=== PATIENT | female | born 1985 | race Hispanic/Latino ===

== ENCOUNTER 2024-04-27 16:56 | Emergency (ER) | payer SELFPAY ==
[~2024-04-27] VITALS: Ht 154.9 cm; Wt 86.3 kg
[~2024-04-27 16:56] MED LIST: SERT20OR PO; [UNRECOGNIZED DRUG - CODE] MC
[2024-04-27 17:29] VITALS: TEMP 99
--- NOTE | 2024-04-27 17:31 | ERN ---
ED Note History of Present Illness Stated Complaint: SOB,NUMBNESS ON BODY, SWOLLEN LEGS AND FEET, Time Seen by MD: 17:04 Time Seen by Midlevel: 17:04 Dictation: The patient is a 38-year-old female with surgical history of breast augmentation, carlos goss who presents to the emergency department with complaints of bilateral lower leg swelling onset yesterday. Patient reports also shortness of breath on and off and with going off for two months. Denies any cough, fevers, nausea vomiting or diarrhea, lower leg trauma, pain. Denies any recent travels. Denies taking any medications at home. Allergies: Coded Allergies: No Known Allergies (Unverified Allergy, Unknown, 02/28/14) Home Meds Reported Medications Hydrazine Sulfate (Hydrazine Sulfate) 1 Gm Crystals, 1 GM MC AM for ANXIETY, PKT 02/28/14 Sertraline HCl (Zoloft) 20 Mg/1 Ml Oral.conc, 20 MG PO AM for ANXIETY, ML 02/28/14 Past Medical History RN Note Reviewed/Agreed w/PFSH: Yes Review of System Dictation Constitutional: Negative for fever,chills, and weight loss Eyes: Negative for injury, pain,redness, and discharge ENT: Negative for injury,pain or swelling Cardiovascular: Negative for chest pain, palpitations positive for lower extremity edema Respiratory: Negative for cough, and wheezing, positive for shortness of breath Abdomen/GI: Negative for abdominal pain, nausea, vomiting, diarrhea, and constipation Back: Negative for injury and pain : Negative for injury, bleeding and discharge MS/Extremity: Negative for injury and deformity Skin: Negative for rash, and discoloration Neuro: Negative for headache, weakness, numbness, tingling, and seizure Psych: Negative for suicide ideation, homicidal ideation, and hallucinations Initial Vital Sign VS Vital Signs Date Time Temp Pulse Resp B/P (MAP) Pulse Ox O2 Delivery O2 Flow Rate FiO2 04/27/24 17:29 99.0 81 20 118/85 99 Room Air 0 04/27/24 18:24 21 Physical Exam Dictation Vital Signs reviewed General Appearance: Alert, oriented x 3, no acute distress, well developed, nourished. Head and Face: non-traumatic. Eyes: PERRL, pink conjunctivas, eyelid no trauma, anterior chamber with arcus senilis. Ears: Pinnas intact and no signs of trauma or erythema ear canals clear and no discharge TM no erythema Nose: No discharge, no bleeding. Oropharynx: Mouth normal, tongue pink. pharynx clear,no erythema, tonsils no exudates, no abscesses noted, mucous membrane moist Neck: Supple, non-tender, no thyromegaly, no masses, no JVD, no bruits Breast:Deferred Chest:No tenderness, no crepitus, no paradoxical movement, no retractions Lungs:Clear, well-ventilated, symmetric, no rales, no wheezing, no rhonchi, no stridor, good breath sounds bilaterally Heart: Regular rate, regular rhythm, no murmur, no gallops Vascular: Nonpitting edema to bilateral lower extremities, dorsalis pedis 3+ Abdomen: Soft, positive bowel sounds, nondistended, no guarding, nontender, no rebound, no masses no hepatomegaly, no splenomegaly, no Deng's sign, no hernias. Rectal: Deferred Genital: Deferred Neurological: Normal speech, motor function intact, sensory function intact Musculoskeletal: Neck nontender, full range of motion, back nontender, full range of motion, Extremities: nontender, full range of motion Skin: Color pink, dry, no turgor, no rash, no lacerations, no abrasions, no contusions. Lymphatic: Deferred Results (Laboratory/Radiology) Laboratory/Radiology Laboratory Tests Test 04/27/24 17:46 White Blood Count 11.5 K/uL (4.8-10.8) H Red Blood Count 4.25 MIL/uL (4.00-5.50) Hemoglobin 12.7 g/dL (12.0-16.0) Hematocrit 39.5 % (36-48) Mean Corpuscular Volume 92.9 fL (79-99) Mean Corpuscular Hemoglobin 29.9 pg (27.0-33.0) Mean Corpuscular Hemoglobin Concent 32.2 g/dL (32.0-36.0) Red Cell Distribution Width 13.0 % (11.0-15.5) Platelet Count 342 K/uL (130-400) Mean Platelet Volume 9.6 fL (7.5-10.5) Immature Granulocyte % (Auto) 0.5 % (0-1) Neutrophils (%) (Auto) 61.8 % (40.0-77.0) Lymphocytes (%) (Auto) 29.7 % (21.0-51.0) Monocytes (%) (Auto) 5.7 % (3.0-13.0) Eosinophils (%) (Auto) 2.0 % (0.0-8.0) Basophils (%) (Auto) 0.3 % (0.0-5.0) Neutrophils # (Auto) 7.1 K/uL (1.8-7.7) Lymphocytes # (Auto) 3.4 K/uL (1.0-4.8) Monocytes # (Auto) 0.7 K/uL (0.1-1.0) Eosinophils # (Auto) 0.23 K/uL (0.00-0.70) Basophils # (Auto) 0.04 K/uL (0.00-0.20) Absolute Immature Granulocyte (auto 0.06 K/uL (0-1) Nucleated Red Blood Cells 0.0 % (0.0-0.19) Sodium Level 134 mmol/L (136-145) L Potassium Level 3.8 mmol/L (3.5-5.1) Chloride Level 95 mmol/L (101-111) L Carbon Dioxide Level 31 mmol/L (21-32) Blood Urea Nitrogen 12 mg/dL (7-18) Creatinine 0.9 mg/dL (0.5-1.0) Glomerular Filtration Rate Calc 85 mL/min (>90) Random Glucose 90 mg/dL (70-105) Total Calcium 9.6 mg/dL (8.5-10.1) Total Creatine Kinase 502 U/L (21-232) *H Troponin I High Sensitivity < 4 ng/L (4-50) L B-Type Natriuretic Peptide 11 pg/mL (0-100) Serum Test, Qualitative NEGATIVE (NEGATIVE) AMRIK: sob ORDERING PHYSICIAN: FARHAD PULLIAM [employer]ONE SUPERVISOR [employer] PROCEDURE: CXR1VW - CHEST 1VW PORTABLE CHEST RADIOGRAPH INDICATION: sob COMPARISON: None FINDINGS: Heart size is normal. The pulmonary vascularity and maeve appear normal. No abnormal pulmonary parenchymal opacity or consolidation identified. No significant pleural effusion noted. No pneumothorax detected. IMPRESSION: No radiographic evidence for any acute cardiopulmonary process. REASON: swelling ORDERING PHYSICIAN: FARHAD PULLIAM [employer]ONE SUPERVISOR [employer] PROCEDURE: VENOUS HOA - US VENOUS DOPPLER BILATERAL US VENOUS DOPPLER BILATERAL CLINICAL HISTORY: swelling COMPARISON: None FINDINGS: Bilateral lower extremity venous Doppler ultrasound was performed. The greater saphenous, common femoral, deep femoral, femoral , popliteal veins are widely patent and easily compressible with the ultrasound probe. Calf veins appear normal as well. There is normal response to compression and augmentation. IMPRESSION: Normal bilateral lower extremity venous Doppler ultrasound. Labs Reviewed?: Yes EKG: (+) rhythm (Sinus rhythm), (+) [place] (120), (+) QRS (83) EKG Comment: EKG 04/27/2024 1744 ventricular rate 81, regular rate and rhythm, normal sinus rhythm, no STEMI. ED Course ED Course Orders Procedure Category Date Status Time Cbc With Differential LAB 04/27/24 Complete 17:26 Troponin I High LAB 04/27/24 Complete Sensitivity 17:26 12 Lead Ekg Tracing- EKG 04/27/24 Resulted Technical 17:26 Chest 1vw RAD 04/27/24 Resulted 17:26 Basic Metabolic Panel LAB 04/27/24 Complete 17:26 Us Venous Doppler US 04/27/24 Resulted Bilateral 17:26 Testing, LAB 04/27/24 Complete Serum Hcg 17:26 B-Type Natriuretic LAB 04/27/24 Complete Peptide 17:30 Creatine Kinase, Total LAB 04/27/24 Complete 17:30 0.9%Nacl 1000ml (Ns PHA 04/27/24 Complete 1000ml) 19:00 Current Medications Medications (Trade) Dose Ordered Sig/Anastasia Route PRN Reason Start Time Stop Time Status Last Admin Dose Admin Sodium Chloride 1,000 ml @ 0 mls/hr ONCE ONCE IV 04/27/24 19:00 04/27/24 19:01 DC 04/27/24 18:43 Vital Signs Date Time Temp Pulse Resp B/P (MAP) Pulse Ox O2 Delivery O2 Flow Rate FiO2 04/27/24 20:00 88 18 124/68 99 Room Air* 0 21 04/27/24 19:10 91 18 135/90 100 Room Air* 0 21 04/27/24 18:24 90 14 135/90 100 Room Air* 0 21 04/27/24 17:29 99.0 81 20 118/85 99 Room Air 0 Medical Decision Making MDM The patient is a 38-year-old female with surgical history of breast augmentation, carlos goss who presents to the emergency department with complaints of bilateral lower leg swelling onset yesterday. Patient reports also shortness of breath on and off and with going off for two months. Denies any cough, fevers, nausea vomiting or diarrhea, lower leg trauma, pain. Denies any recent travels. Denies taking any medications at home. CBC showed mild leukocytosis, no anemia, chemistry showed mild hyponatremia, hypochloremia, slightly elevated CK level. Patient was giving a little oral fluids. Bilateral lower extremity ultrasound negative for DVT, chest x-ray clear. Patient reports that she isn't incontinence constantly sitting down. That might be causing the lower extremity edema. Patient instructed to elevate legs to decrease swelling. Patient continues in no distress. Will be discharged to follow up with primary doctor. Patient agrees with discharge planning. Differential diagnosis: Pneumonia, pneumothorax, electrolyte imbalance, DVT, CHF Need for hospitalization: Patient does not meet criteria for hospitalization. There are no social concerns with this patient. DX & DISP Disposition: Discharge Departure Impression: Primary Impression: Lower leg edema Additional Impressions: Dyspnea, Hyponatremia, Elevated creatine kinase Condition: Stable Additional Instructions: Please elevate your legs as needed to decrease edema. Your ultrasound showed no blood clots. Please follow up with primary doctor. FOLLOW-UP WITH PRIMARY CARE PROVIDER IN 1 TO 2 DAYS. TAKE MEDICATIONS DIRECTED HERE IN THE EMERGENCY ROOM. OKAY TO CONTINUE HOME MEDICATIONS UNLESS OTHERWISE DISCUSSED DURING YOUR VISIT IN THE EMERGENCY ROOM TODAY. RETURN TO YOUR NEAREST EMERGENCY ROOM IF SYMPTOMS WORSEN OR IF THERE IS NO IMPROVEMENT. CALL 911 IF YOU NEED IMMEDIATE ASSISTANCE. TAKE TYLENOL OR MOTRIN [id number] NEEDED AND IF NO CONTRAINDICATIONS ARE PRESENT. INCREASE ORAL HYDRATION. A WOUND CULTURE OR URINE CULTURE WAS ORDERED HERE IN THE EMERGENCY ROOM DEPARTMENT PLEASE FOLLOW-UP WITH PRIMARY CARE PROVIDER AND ADVISE THEM TO GET REPEAT PORTS FROM OUR FACILITY. IF YOU HAD ANY NICK WRAP/SPLINTS THAT WERE APPLIED HERE, PLEASE DO NOT REMOVE THEM UNTIL YOU SEE YOUR PRIMARY CARE OR SPECIALTY. Referrals: SELF,REFERRAL (PCP) Time of Disposition: 19:39 I have reviewed the case, and I agree with, Diagnosis and Plan FARHAD PULLIAM Apr 27, 2024 17:31
--- NOTE | 2024-04-27 17:50 | EKG ---
[facility] Test Date: 2024-04-27 Test Time: 17:44:18 Pat Name: CINTIA VELAZQUEZ Department: [facility] Room: Gender: F Rehab Assistant: [id number] : 1985 Requested By: FARHAD PULLIAM Order Number: [id number] Reading MD: Tanner Inman Measurements Intervals [place] Rate: 81 P: 32 CA: 120 QRS: 34 QRSD: 83 T: 30 QT: 351 QTc: 407 Interpretive Statements Sinus rhythm No previous ECG available for comparison Electronically Signed On 04-27-2024 18:37:17 FILM FLAT INSPECTOR by Tanner Inman Please click the below link to view image of tracing.
--- NOTE | 2024-04-27 17:54 | HMCIMG ---
PORTABLE CHEST RADIOGRAPH INDICATION: sob COMPARISON: None FINDINGS: Heart size is normal. The pulmonary vascularity and maeve appear normal. No abnormal pulmonary parenchymal opacity or consolidation identified. No significant pleural effusion noted. No pneumothorax detected. IMPRESSION: No radiographic evidence for any acute cardiopulmonary process.
[2024-04-27 17:56] LABS: BASOPHILS # (AUTO) 0.04 K/uL (0.00-0.20); BASOPHILS % (AUTO) 0.3 % (0.0-5.0); EOSINOPHILS # (AUTO) 0.23 K/uL (0.00-0.70); HEMATOCRIT 39.5 % (36-48); IMMATURE GRANULOCYTE ABSOLUTE 0.06 K/uL (0-1); LYMPHOCYTES # (AUTO) 3.4 K/uL (1.0-4.8); LYMPHOCYTES % (AUTO) 29.7 % (21.0-51.0); MEAN CORPUSCULAR HEMOGLOBIN 29.9 pg (27.0-33.0); MEAN CORPUSCULAR HGB CONC 32.2 g/dL (32.0-36.0); MEAN CORPUSCULAR VOLUME 92.9 fL (79-99); MONOCYTES # (AUTO) 0.7 K/uL (0.1-1.0); MONOCYTES % (AUTO) 5.7 % (3.0-13.0); NEUTROPHILS # (AUTO) 7.1 K/uL (1.8-7.7); NEUTROPHILS % (AUTO) 61.8 % (40.0-77.0); PLATELET COUNT (AUTO) 342 K/uL (130-400); RED BLOOD CELL COUNT(AUTO) 4.25 MIL/uL (4.00-5.50); WHITE BLOOD COUNT (AUTO) 11.5 K/uL (4.8-10.8)
[2024-04-27 18:09] LABS: CREATININE 0.9 mg/dL (0.5-1.0); POTASSIUM 3.8 mmol/L (3.5-5.1)
[2024-04-27] MEDS: 0.9%NACL 1000ML 1,000 ML IV ONE (18:43)
[2024-04-27 20:00] VITALS: BP 124/68; PULSE 88; RESP 18; O2SAT 99
--- NOTE | 2024-04-27 21:00 | HMCIMG ---
US VENOUS DOPPLER BILATERAL CLINICAL HISTORY: swelling COMPARISON: None FINDINGS: Bilateral lower extremity venous Doppler ultrasound was performed. The greater saphenous, common femoral, deep femoral, femoral , popliteal veins are widely patent and easily compressible with the ultrasound probe. Calf veins appear normal as well. There is normal response to compression and augmentation. IMPRESSION: Normal bilateral lower extremity venous Doppler ultrasound.
== END 2024-04-27 20:40 | disposition home or self-care (01) ==
LOC: EDH 16:56
DX: R60.0 Localized edema (principal); R06.00 Dyspnea, unspecified; E87.1 Hypo-osmolality and hyponatremia; R74.8 Abnormal levels of other serum enzymes; Z79.899 Other long term (current) drug therapy
CPT/HCPCS: 99285; 93970; 96360; 71045; 82550; 84484; 80048; 83880; 84703; 85025; 36415; 93005; J7030